=== PATIENT | female | born 2000 | race Caucasian/White ===

== ENCOUNTER 2023-11-27 09:31 | Emergency (ER) | payer OTHER ==
[~2023-11-27] VITALS: Ht 152.4 cm; Wt 90.7 kg
[2023-11-27 09:42] VITALS: BP 112/75; PULSE 87; RESP 18; TEMP 97.6; O2SAT 96
[2023-11-27] MEDS: KETOROLAC 60 MG/2 ML VIAL IM ONE (11:41)
[2023-11-27] MEDS ORDERED: MELO-176 PO (11:46)
== END 2023-11-27 12:09 | disposition home or self-care (01) ==
LOC: MED 09:31
DX: S43.402A Unspecified sprain of left shoulder joint, initial encounter (principal); J45.909 Unspecified asthma, uncomplicated; Z79.899 Other long term (current) drug therapy; X58.XXXA Exposure to other specified factors, initial encounter; Y93.89 Activity, other specified; Y92.89 Other specified places as the place of occurrence of the external cause; Y99.8 Other external cause status
CPT/HCPCS: 73030; 81025; 96372; 99283; J1885